=== PATIENT | female | born 1950 | race Caucasian/White ===

== ENCOUNTER 2019-07-15 16:46 | Emergency (ER) | payer MEDICARE, OTHER ==
--- NOTE | 2019-07-15 17:53 | EDM.PDOC ---
ED HPI GENERAL MEDICAL PROBLEM - General Stated Complaint: SYNCOPe Time Seen by Provider: 07/15/19 16:50 Source of Information: Reports: Patient History Limitations: Reports: No Limitations - History of Present Illness INITIAL COMMENTS - FREE TEXT/NARRATIVE: Patient presented to the ED because of a brief syncopal episode. 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 She then fell hit her chin and the back of her head. She was unconcious for a minute or so. En route here she was given IV fluids and upon her arrival in the ED she is already AAO X 3 with GCS of 15. - Related Data Allergies Allergy/AdvReac Type Severity Reaction Status Date / Time No Known Allergies Allergy Verified 07/15/19 17:07 Home Meds: Home Meds Ferrous Sulfate 325 mg PO BID #60 tablet 07/15/19 [Rx] Past Medical History Psychiatric History: Reports: Anxiety, Depression ED ROS GENERAL - Review of Systems Review Of Systems: See Below Constitutional: Reports: No Symptoms HEENT: Reports: No Symptoms Respiratory: Reports: No Symptoms Cardiovascular: Reports: No Symptoms Endocrine: Reports: No Symptoms GI/Abdominal: Reports: No Symptoms : Reports: No Symptoms Musculoskeletal: Reports: No Symptoms Skin: Reports: No Symptoms Neurological: Reports: No Symptoms Psychiatric: Reports: No Symptoms ED EXAM, GENERAL - Physical Exam Exam: See Below Exam Limited By: No Limitations General Appearance: Alert, No Apparent Distress Eye Exam: Bilateral Eye: PERRL Ears: Normal External Exam, Normal Canal Nose: Normal Inspection, Normal Mucosa Throat/Mouth: Normal Inspection, Normal Lips Head: Atraumatic, Normocephalic Neck: Normal Inspection, Supple, Non-Tender Respiratory/Chest: No Respiratory Distress, Lungs Clear, No Accessory Muscle Use Cardiovascular: Normal Peripheral Pulses, Regular Rate, Rhythm, No Edema GI/Abdominal: Normal Bowel Sounds, Soft, Non-Tender, No Organomegaly Back Exam: Normal Inspection, Full Range of Motion Extremities: Normal Inspection, Normal Range of Motion Neurological: Alert, Oriented, Normal Cognition, Normal Reflexes Psychiatric: Normal Affect Course - Vital Signs Text/Narrative:: Labs/EKG/Head CT was discussed with the patient and verbalized full understanding Last Recorded V/S: Last Vital Signs Temp 36.2 C 07/15/19 16:46 Pulse 60 07/15/19 18:15 Resp 14 07/15/19 18:15 BP 158/95 H 07/15/19 18:15 Pulse Ox 100 07/15/19 18:15 Orthostatic Blood Pressure [ 139/93 Standing] Orthostatic Blood Pressure [ 164/88 Sitting] Orthostatic Blood Pressure [ 164/83 Supine] - Orders/Labs/Meds Orders: Active Orders 24 hr Category Date Time Status EKG Documentation Completion [RC] ASDIRECTED Care 07/15/19 17:04 Active EKG 12 Lead [EK] Routine Ther 07/15/19 16:58 Ordered Labs: Laboratory Tests 07/15/19 07/15/19 07/15/19 Range/Units 17:00 17:00 17:00 WBC 4.3 L (4.5-12.0) X10-3/uL RBC 4.37 (3.23-5.20) x10(6)uL Hgb 10.5 L (11.5-15.5) g/dL Hct 32.9 (30.0-51.3) % MCV 75.4 L (80-96) fL MCH 23.9 L (27.7-33.6) pg MCHC 31.7 L (32.2-35.4) g/dL RDW 18.6 H (11.5-15.5) % Plt Count 311 (125-369) X10(3)uL MPV 8.2 (7.4-10.4) fL Neut % (Auto) 52.2 (46-82) % Lymph % (Auto) 26.2 (13-37) % [place] % (Auto) 18.3 H (4-12) % Eos % (Auto) 2 (1.0-5.0) % Baso % (Auto) 1 (0-2) % Neut # (Auto) 2.2 (1.6-8.3) # Lymph # (Auto) 1.1 (0.6-5.0) # [place] # (Auto) 0.8 (0.0-1.3) # Eos # (Auto) 0.1 (0.0-0.8) # Baso # (Auto) 0.1 (0.0-0.2) # Sodium 142 (135-145) mmol/L Potassium 4.0 (3.5-5.3) mmol/L Chloride 109 (100-110) mmol/L Carbon Dioxide 26 (21-32) mmol/L BUN 7 (7-18) mg/dL Creatinine 0.9 (0.55-1.02) mg/dL Est Cr Clr Drug Dosing TNP Estimated GFR (MDRD) > 60 (>60) BUN/Creatinine Ratio 7.8 L (9-20) Glucose 94 (80-116) mg/dL Calcium 8.1 L (8.6-10.2) mg/dL Troponin I 6.6 (4.0-60.3) pg/mL Departure - Departure Time of Disposition: 17:50 Disposition: Home, Self-Care 01 Condition: Good Clinical Impression: Vasovagal syncope, Anemia - Discharge Information Prescriptions: Ferrous Sulfate 325 mg PO BID #60 tablet Instructions: Anemia, Syncope, [id number] Referrals: PCP,Not In Area [Primary Care Provider] - Forms: ED Department Discharge Additional Instructions: please read discharge instructions on vasovagal synciope Rest for the day Increase oral fluids Take ferrous sulfate twice daily for 1 month recheck your hemoglobin after 1 month Takke vitamin C 1 tablet daily for 1 month. It increases iron absorption Follow up after a month or earlier if needed Sepsis Event Note - Evaluation Sepsis Screening Result: No Definite Risk - Focused Exam Date Exam was Performed: 07/16/19 Time Exam was Performed: 07:12 - My Orders Last 24 Hours: My Active Orders 07/15/19 16:58 EKG 12 Lead [EK] Routine 07/15/19 17:04 EKG Documentation Completion [RC] ASDIRECTED - Assessment/Plan Last 24 Hours: My Active Orders 07/15/19 16:58 EKG 12 Lead [EK] Routine 07/15/19 17:04 EKG Documentation Completion [RC] ASDIRECTED
--- NOTE | 2019-07-15 18:04 | CT ---
INDICATION: Passed out, unknown if there was head trauma. Increased dizziness. No headache. CT HEAD WITHOUT CONTRAST: Spiral 3.75 mm axial sections were obtained through the brain without contrast with sagittal and coronal reconstructions 07/15/2019 - no comparisons. Total exam DLP was 1296.53 mGy/cm. The paranasal sinuses and mastoid air cells appear well aerated. No cranial fracture site was seen. The orbits appear to be intact. No shift of midline structures or ventricular abnormalities were identified. There is some very minimal calcification suggested in the internal carotid arteries. There are also noted some minimal patchy areas of decreased density scattered about the white matter compatible with a mild degree of microvascular disease, although other cause of leukoencephalopathy cannot be excluded. No bleeding site or hematoma, or other acute intracranial abnormality was demonstrated. Prominence of the sulci is noted in the frontoparietal areas compatible with a mild degree of atrophy of the cortex. IMPRESSION: 1. No acute intracranial abnormality. 2. Cerebrovascular disease with minimal microvascular disease type changes in the white matter - correlate clinically. 3. Mild cortical atrophy frontoparietal. Report was called to Dr. Bryant at [address] [facility]
== END 2019-07-15 18:30 | disposition home or self-care (01) ==
LOC: FB.ED 16:46
DX: R55 Syncope and collapse (principal); D64.9 Anemia, unspecified
CPT/HCPCS: 36415; 70450; 80048; 82962; 84484; 85025; 93005; 99285-25